=== PATIENT | female | born 2000 | race Caucasian/White ===

== ENCOUNTER 2022-04-10 14:18 | Observation (INO) ==
[2022-04-10] MEDS ORDERED: Iopamidol - 370 500 ML MLS IVP ONE (15:48)
[2022-04-10] MEDS ORDERED: Morphine Sulfate 2 MG/ML SYRINGE IVP ONE (15:49)
[2022-04-10 15:53] LABS: Basophils # 0.1 K/mcL (0.0-0.2); Basophils % 0.7 %; Bilirubin,Urine Negative (Negative); Blood,Urine Trace (Negative); Clarity,Urine Clear (Clear); Color,Urine Light-Yellow (Yellow); Eosinophils # 0.1 K/mcL (0.0-0.6); Eosinophils % 0.7 %; Glucose,Urine (UA) Normal (Normal); Hematocrit 37.7 % (35.3-44.9); Hemoglobin 12.5 g/dL (11.5-15.4); Immature Granulocytes % 0.2 % (0-4); Ketones,Urine Negative (Negative); Leukocyte Esterase,Urine Trace (Negative); Lymphocytes # 2.6 K/mcL (0.6-4.6); Lymphocytes % 26.9 %; Mean Corpuscular HGB Conc 33.2 g/dL (31.6-35.5); Mean Corpuscular Hemoglobin 28.1 pg (28.0-33.3); Mean Corpuscular Volume 84.7 fL (83.0-100.0); Mean Platelet Volume 9.4 fL (9.4-12.4); Monocytes # 0.6 K/mcL (0.0-1.3); Monocytes % 6.7 %; Mucus,Urine Few per lpf (None-Few); Neutrophils # 6.2 K/mcL (1.6-8.9); Nitrite,Urine Negative (Negative); Platelet Count 354 K/mcL (140-400); Protein,Urine Trace mg/dL (Neg-Trace); Red Blood Count 4.45 M/mcL (3.82-4.97); Segmented Neutrophils % 64.8 %; Specific Gravity,Urine 1.023 (1.010-1.025); Squamous Epithelial Cell,Urine Few per hpf (None-Few); Urobilinogen,Urine Normal (Normal); WBC,Urine 0-3 per hpf (0-3); White Blood Count 9.6 K/mcL (4.3-11.1)
[2022-04-10 16:11] LABS: Alanine Aminotransferase 19 Units/L (7-52); Albumin 4.1 g/dL (3.5-5.7); Albumin/Globulin Ratio 1.2 (1.1-2.2); Alkaline Phosphatase 57 Units/L (34-104); Aspartate Amino Transferase 17 Units/L (13-39); BUN/Creatinine Ratio 10 (6-26); Bilirubin,Indirect 0.4 mg/dL (0.0-1.0); Bilirubin,Total 0.4 mg/dL (0.3-1.0); Blood Urea Nitrogen 8 mg/dL (6-20); Calcium 9.3 mg/dL (8.6-10.3); Carbon Dioxide 24 mEq/L (23-29); Chloride 104 mEq/L (98-107); Globulin 3.4 g/dL (2.4-3.5); Glucose 104 mg/dL (70-105); Lipase 35 Units/L (11-82); Osmolality,Calculated 281 (280-300); Potassium 3.6 mEq/L (3.5-5.1); Sodium 136 mEq/L (136-145); Total Protein 7.5 g/dL (6.4-8.9)
[2022-04-10] MEDS ORDERED: Ondansetron 4 MG/2 ML VIAL IVP PRN (18:19)
[2022-04-10] MEDS ORDERED: *HR* OxyCODONE/APAP 5/325 TABLET PO PRN (18:19)
[2022-04-10] MEDS: Piperacillin/Tazobactam 3.375 GM in 0.9 % Sodium Chloride Mini Bag 100 ML IVPB SCH (20:07)
[2022-04-10] MEDS: Ketorolac 30 MG/ML VIAL IVP PRN (20:09)
[2022-04-11] MEDS: Piperacillin/Tazobactam 3.375 GM in 0.9 % Sodium Chloride Mini Bag 100 ML IVPB SCH ×3 (03:12→18:16)
[2022-04-11 05:49] LABS: Basophils # 0.1 K/mcL (0.0-0.2); Basophils % 0.6 %; Eosinophils # 0.1 K/mcL (0.0-0.6); Eosinophils % 0.6 %; Hematocrit 34.2 % (35.3-44.9); Hemoglobin 11.1 g/dL (11.5-15.4); Immature Granulocytes % 0.2 % (0-4); Lymphocytes # 3.3 K/mcL (0.6-4.6); Lymphocytes % 39.9 %; Mean Corpuscular HGB Conc 32.5 g/dL (31.6-35.5); Mean Corpuscular Hemoglobin 27.6 pg (28.0-33.3); Mean Corpuscular Volume 85.1 fL (83.0-100.0); Mean Platelet Volume 9.5 fL (9.4-12.4); Monocytes # 0.6 K/mcL (0.0-1.3); Monocytes % 7.7 %; Neutrophils # 4.2 K/mcL (1.6-8.9); Platelet Count 338 K/mcL (140-400); Red Blood Count 4.02 M/mcL (3.82-4.97); White Blood Count 8.2 K/mcL (4.3-11.1)
[2022-04-11 06:08] LABS: BUN/Creatinine Ratio 9 (6-26); Blood Urea Nitrogen 8 mg/dL (6-20); Carbon Dioxide 26 mEq/L (23-29); Chloride 103 mEq/L (98-107); Glucose 83 mg/dL (70-105); Osmolality,Calculated 281 (280-300); Potassium 3.4 mEq/L (3.5-5.1); Sodium 137 mEq/L (136-145)
[2022-04-11] MEDS ORDERED: *HR* Propofol 200 MG/20 ML VIAL IVP ONE ×2 (07:20→07:21)
[2022-04-11] MEDS ORDERED: Ondansetron 4 MG/2 ML VIAL ONE (07:20)
[2022-04-11] MEDS ORDERED: *HR* FentaNYL (PF) 100 MCG/2 ML VIAL ONE (07:20)
[2022-04-11] MEDS ORDERED: Lidocaine -MPF 4% 5 ML AMPUL ONE (07:20)
[2022-04-11] MEDS ORDERED: *HR* Succinylcholine 200 MG/10 ML VIAL IVP ONE (07:20)
[2022-04-11] MEDS ORDERED: *HR* HYDROmorphone PF 0.5 MG/0.5 ML SYRINGE IVP PRN (07:24)
[2022-04-11] MEDS ORDERED: Promethazine 6.25 MG in Water for inj. (sterile) 20 ML IVPB PRN (07:24)
[2022-04-11] MEDS ORDERED: Acetaminophen IV 1,000 MG/100 ML BAG IVPB PRN (07:24)
[2022-04-11] MEDS ORDERED: *HR* Midazolam HCl 2 MG/2 ML VIAL ONE ×2 (07:30)
[2022-04-11] MEDS ORDERED: *HR* Magnesium Sulfate 1 GM/2 ML VIAL ONE (08:04)
[2022-04-11] MEDS ORDERED: Acetaminophen IV 1,000 MG/100 ML BAG IVPB ONE (08:16)
[2022-04-11] MEDS ORDERED: Ketorolac 30 MG/ML VIAL ONE (08:39)
[2022-04-11] MEDS: Ketorolac 30 MG/ML VIAL IVP PRN ×3 (08:40→23:14)
[2022-04-11] MEDS ORDERED: Ondansetron 4 MG/2 ML VIAL IVP PRN (09:41)
[2022-04-11] MEDS: *HR* OxyCODONE/APAP 5/325 TABLET PO PRN ×2 (09:55→18:25)
[2022-04-11] MEDS ORDERED: *HR* LORazepam 2 MG/ML VIAL IVP ONE (19:58)
[2022-04-11] MEDS ORDERED: *HR* LORazepam 2 MG/ML VIAL IVP PRN (19:58)
[2022-04-11] MEDS: Gabapentin 300 MG CAPSULE PO SCH ×2 (20:05→23:14)
[2022-04-12] MEDS: Piperacillin/Tazobactam 3.375 GM in 0.9 % Sodium Chloride Mini Bag 100 ML IVPB SCH ×2 (02:28→11:27)
[2022-04-12] MEDS: Gabapentin 300 MG CAPSULE PO SCH (08:45)
[2022-04-12 10:48] VITALS: BP 115/74; PULSE 99; TEMP 98.9; O2SAT 97
== END 2022-04-12 13:27 | disposition home or self-care (01) ==
LOC: 3ANU 14:18 → EMEROOARM 14:18 → 3ANU 19:39
PROVIDERS: ADMIT Surgery; ATTEND Surgery